=== PATIENT | male | born 1960 | race Caucasian/White ===

== ENCOUNTER → 2020-09-08 | Outpatient (CLI) | payer BC ==
[~2020-09-08] MED LIST: ASPIRIN EC325 MG PO; ENDOCET 7.5-321 EACH PO; FLOMAX 0.4 MG0.4 MG PO; PRILOSEC OTC20 MG PO; PROZAC 20 MG CA20 MG PO; TIZANIDINE HCL2 MG PO; VOLTAREN EC 7575 MG PO
[2020-09-08 10:40] LABS: HEMOGLOBIN 14.1 gm/dl (14.0-17.5); RED BLOOD COUNT 4.52 M/UL (4.20-5.50); WHITE BLOOD COUNT 5.3 K/UL (4.5-11.0)
[2020-09-08 11:03] LABS: BUN/CREATININE RATIO 15 (0-10)
== END ==
LOC: OPSV2 10:00 → EDSTATUS 10:00 → OPSV2 10:08
PROVIDERS: Orthopaedic Surgery
DX: Z01.818 Encounter for other preprocedural examination (principal); M17.12 Unilateral primary osteoarthritis, left knee
CPT/HCPCS: 36415; 71046; 80048; 85027; 87081; 93005

== ENCOUNTER → 2020-09-21 | Outpatient (CLI) | payer BC ==
[2020-09-21 13:10] LABS: BUN/CREATININE RATIO 19 (0-10)
== END ==
LOC: LAB 11:52
PROVIDERS: Orthopaedic Surgery
DX: Z01.812 Encounter for preprocedural laboratory examination (principal); M17.12 Unilateral primary osteoarthritis, left knee
CPT/HCPCS: 36415; 80048; 86850; 86900; 86901

== ENCOUNTER 2020-09-22 07:16 | Day surgery (SDC) | payer BC ==
[~2020-09-22] VITALS: Ht 167.6 cm; Wt 90.7 kg
[~2020-09-22 07:16] MED LIST changes: -ASPIRIN EC325 MG PO; -ENDOCET 7.5-321 EACH PO; -PRILOSEC OTC20 MG PO
[2020-09-22] MEDS ORDERED: PRILOSEC OTC20 MG PO (08:34)
[2020-09-22] MEDS ORDERED: ENDOCET 7.5-321 EACH PO (15:31)
[2020-09-22] MEDS ORDERED: ASPIRIN EC325 MG PO (15:31)
[2020-09-23 02:34] LABS: HEMOGLOBIN 13.6 gm/dl (14.0-17.5); RED BLOOD COUNT 4.46 M/UL (4.20-5.50); WHITE BLOOD COUNT 11.5 K/UL (4.5-11.0)
[2020-09-23 02:53] LABS: BUN/CREATININE RATIO 22 (0-10)
== END 2020-09-23 16:28 | disposition home or self-care (01) ==
LOC: OR 07:16 → M/S 18:13 → OR 09-23 16:28
PROVIDERS: Orthopaedic Surgery
DX: M17.0 Bilateral primary osteoarthritis of knee (principal); G89.18 Other acute postprocedural pain; Z79.82 Long term (current) use of aspirin; C61 Malignant neoplasm of prostate; K21.9 Gastro-esophageal reflux disease without esophagitis; F41.9 Anxiety disorder, unspecified
CPT/HCPCS: 36415; 73560; 80048; 85027; 97110; 97116; 97162; 97165; C1713; C1776; J0690; J1100; J1885; J2250; J2405; J2704; J2795; J3370; J7120

== ENCOUNTER 2020-10-20 08:43 | Emergency (ER) | payer BC ==
[~2020-10-20 08:43] MED LIST changes: +ASPIRIN EC325 MG PO; +ENDOCET 7.5-321 EACH PO; -PROZAC 20 MG CA20 MG PO; -TIZANIDINE HCL2 MG PO
[2020-10-20 09:38] LABS: HEMOGLOBIN 13.7 gm/dl (14.0-17.5); RED BLOOD COUNT 4.51 M/UL (4.20-5.50); WHITE BLOOD COUNT 9.9 K/UL (4.5-11.0)
[2020-10-20 10:01] LABS: BUN/CREATININE RATIO 20 (0-10)
== END 2020-10-20 11:10 | disposition home or self-care (01) ==
LOC: ER1 08:43
PROVIDERS: Physician Assistant Medical
DX: M25.562 Pain in left knee (principal); M79.89 Other specified soft tissue disorders; F17.210 Nicotine dependence, cigarettes, uncomplicated; Z85.46 Personal history of malignant neoplasm of prostate
CPT/HCPCS: 73564; 80053; 85025; 85652; 86140; 93971; 96374; 96375; 99283; J2270; J2405

== ENCOUNTER 2020-10-24 11:25 | Inpatient (IN) | payer BC ==
[~2020-10-24] VITALS: Ht 167.6 cm; Wt 92.1 kg
[2020-10-24 14:38] LABS: HEMOGLOBIN 11.8 gm/dl (14.0-17.5); RED BLOOD COUNT 3.87 M/UL (4.20-5.50); WHITE BLOOD COUNT 9.1 K/UL (4.5-11.0)
[2020-10-24 15:11] LABS: BUN/CREATININE RATIO 18 (0-10)
[2020-10-25 07:36] LABS: BUN/CREATININE RATIO 19 (0-10)
[2020-10-25] MEDS ORDERED: PRILOSEC OTC20 MG PO (08:34)
[2020-10-25] MEDS ORDERED: PROZAC 20 MG CA20 MG PO (11:37)
[2020-10-25] MEDS ORDERED: TIZANIDINE HCL2 MG PO (11:39)
[2020-10-25] MEDS ORDERED: ENDOCET 7.5-321 EACH PO (15:11)
[2020-10-25] MEDS ORDERED: ASPIRIN EC325 MG PO (15:11)
[2020-10-26 04:15] LABS: RED BLOOD COUNT 3.7 M/UL (4.20-5.50); WHITE BLOOD COUNT 7.7 K/UL (4.5-11.0)
[2020-10-26 04:36] LABS: BUN/CREATININE RATIO 16 (0-10)
[2020-10-27 04:47] LABS: HEMOGLOBIN 9.9 gm/dl (14.0-17.5)
[2020-10-27 04:53] LABS: RED BLOOD COUNT 3.32 M/UL (4.20-5.50); WHITE BLOOD COUNT 10.4 K/UL (4.5-11.0)
[2020-10-27 05:10] LABS: BUN/CREATININE RATIO 17 (0-10)
[2020-10-28 06:35] LABS: HEMOGLOBIN 10.5 gm/dl (14.0-17.5); RED BLOOD COUNT 3.52 M/UL (4.20-5.50); WHITE BLOOD COUNT 9.3 K/UL (4.5-11.0)
[2020-10-28 06:57] LABS: BUN/CREATININE RATIO 16 (0-10)
--- NOTE | 2020-10-28 11:29 | NUR ---
REPORT CALLED TO [facility] AT THIS TIME
== END 2020-10-28 13:12 | disposition home health service (06) | DRG 464 ==
LOC: M/S 11:25
PROVIDERS: ADMIT Orthopaedic Surgery
PROC: 0SUD09C Supplement Left Knee Joint with Liner, Patellar Surface, Open Approach (ICD-10-PCS; 2020-10-25)
PROC: 05HY33Z Insertion of Infusion Device into Upper Vein, Percutaneous Approach (ICD-10-PCS; 2020-10-25)
PROC: 0SBD0ZZ Excision of Left Knee Joint, Open Approach (ICD-10-PCS; 2020-10-25)
PROC: 0SPD09Z Removal of Liner from Left Knee Joint, Open Approach (ICD-10-PCS; principal; 2020-10-25 14:30)
DX: T84.54XA Infection and inflammatory reaction due to internal left knee prosthesis, initial encounter (principal); M00.062 Staphylococcal arthritis, left knee; Y83.9 Surgical procedure, unspecified as the cause of abnormal reaction of the patient, or of later complication, without mention of misadventure at the time of the procedure; I10 Essential (primary) hypertension; K21.9 Gastro-esophageal reflux disease without esophagitis; M19.90 Unspecified osteoarthritis, unspecified site; Z96.652 Presence of left artificial knee joint; F41.9 Anxiety disorder, unspecified; B95.61 Methicillin susceptible Staphylococcus aureus infection as the cause of diseases classified elsewhere; Z20.822 Contact with and (suspected) exposure to COVID-19; F32.9 Major depressive disorder, single episode, unspecified; M51.36 Other intervertebral disc degeneration, lumbar region; N40.0 Benign prostatic hyperplasia without lower urinary tract symptoms; M54.9 Dorsalgia, unspecified; Z98.890 Other specified postprocedural states; Z80.8 Family history of malignant neoplasm of other organs or systems; Z90.49 Acquired absence of other specified parts of digestive tract; Z79.82 Long term (current) use of aspirin; Z56.0 Unemployment, unspecified; Z82.49 Family history of ischemic heart disease and other diseases of the circulatory system; Z85.46 Personal history of malignant neoplasm of prostate
CPT/HCPCS: 36415; 73560; 80048; 80202; 82945; 83036; 85025; 85027; 86140; 87040; 87070; 87077; 87186; 87205; 89060; 93005; C1751; C1776; J0690; J1100; J1170; J1885; J2001; J2250; J2270; J2405; J2704; J2710; J3010; J3370; J7030; J7050; J7070; J7120; U0002

== ENCOUNTER → 2020-12-09 | Outpatient (CLI) | payer BC ==
[~2020-12-09] MED LIST changes: +PRILOSEC OTC20 MG PO; +PROZAC 20 MG CA20 MG PO; +TIZANIDINE HCL2 MG PO
== END ==
LOC: KOH-I 12:00
DX: Z01.89 Encounter for other specified special examinations (principal)
CPT/HCPCS: 93971

== ENCOUNTER 2021-01-19 06:21 | Inpatient (IN) | payer BC ==
[~2021-01-19] VITALS: Ht 170.2 cm; Wt 92.5 kg
[2021-01-19] MEDS ORDERED: CEFAZOLIN SODIUM1 GM IV (07:04)
[2021-01-19] MEDS ORDERED: HEPARIN FL 100 UNIT IV (07:05)
[2021-01-19 07:29] LABS: HEMOGLOBIN 11.1 gm/dl (14.0-17.5); RED BLOOD COUNT 4.3 M/UL (4.20-5.50); WHITE BLOOD COUNT 4.9 K/UL (4.5-11.0)
[2021-01-19 07:39] LABS: BUN/CREATININE RATIO 24 (0-10)
[2021-01-19] MEDS ORDERED: ASPIRIN EC81 MG PO (13:56)
[2021-01-19] MEDS ORDERED: ENDOCET 10-3251 EACH PO (13:56)
[2021-01-20 03:05] LABS: RED BLOOD COUNT 3.22 M/UL (4.20-5.50)
[2021-01-20 03:06] LABS: HEMOGLOBIN 8.5 gm/dl (14.0-17.5)
[2021-01-20 03:23] LABS: BUN/CREATININE RATIO 24 (0-10)
[2021-01-20] MEDS ORDERED: ANCEF 1 GM IV AD1 GM IV (09:43)
--- NOTE | 2021-01-20 12:38 | NUR ---
discontinued patient's hemovac to left knee. patient tolerated well.
[2021-01-20] MEDS ORDERED: CUBICIN 500 MG500 MG IV (15:38)
--- NOTE | 2021-01-20 16:12 | NUR ---
REPORT CALLED TO [facility] AT [facility].
== END 2021-01-20 09:38 | disposition home health service (06) | DRG 465 ==
LOC: ZOBSOF 06:21 → M/S 15:26
PROVIDERS: ADMIT Orthopaedic Surgery
PROC: 0SHD08Z Insertion of Spacer into Left Knee Joint, Open Approach (ICD-10-PCS; 2021-01-19)
PROC: 0SBD0ZZ Excision of Left Knee Joint, Open Approach (ICD-10-PCS; 2021-01-19)
PROC: 0SPD0JZ Removal of Synthetic Substitute from Left Knee Joint, Open Approach (ICD-10-PCS; principal; 2021-01-19 11:30)
DX: T84.54XA Infection and inflammatory reaction due to internal left knee prosthesis, initial encounter (principal); Z20.822 Contact with and (suspected) exposure to COVID-19; F41.9 Anxiety disorder, unspecified; M51.36 Other intervertebral disc degeneration, lumbar region; N40.0 Benign prostatic hyperplasia without lower urinary tract symptoms; Y83.8 Other surgical procedures as the cause of abnormal reaction of the patient, or of later complication, without mention of misadventure at the time of the procedure; T84.033A Mechanical loosening of internal left knee prosthetic joint, initial encounter; K21.9 Gastro-esophageal reflux disease without esophagitis; M19.90 Unspecified osteoarthritis, unspecified site; Z82.49 Family history of ischemic heart disease and other diseases of the circulatory system; Z90.49 Acquired absence of other specified parts of digestive tract; Z85.46 Personal history of malignant neoplasm of prostate
CPT/HCPCS: 36415; 73560; 80048; 85027; 85652; 86140; 87070; 87205; 93005; 97163; 97165; J0171; J0690; J0878; J1100; J1170; J1885; J2001; J2405; J2704; J2795; J3010; J3260; J3370; J7040; J7050; J7120

== ENCOUNTER → 2021-03-16 | Outpatient (CLI) | payer BC ==
[~2021-03-16] MED LIST changes: +ANCEF 1 GM IV AD1 GM IV; +ASPIRIN EC81 MG PO; +CEFAZOLIN SODIUM1 GM IV; +CUBICIN 500 MG500 MG IV; +DAPTOMYCIN IV; +ENDOCET 10-3251 EACH PO; +FERROUS SULFAT325 MG PO; +HEPARIN FL 100 UNIT IV
[2021-03-16 11:12] LABS: HEMOGLOBIN 9.3 gm/dl (14.0-17.5); RED BLOOD COUNT 4.19 M/UL (4.20-5.50); WHITE BLOOD COUNT 6.8 K/UL (4.5-11.0)
== END ==
LOC: OPSV2 03-14 09:00 → EDSTATUS 09:30 → OPSV2 09:30
PROVIDERS: Orthopaedic Surgery
DX: Z01.812 Encounter for preprocedural laboratory examination (principal); T84.69XA Infection and inflammatory reaction due to internal fixation device of other site, initial encounter
CPT/HCPCS: 36415; 85027

== ENCOUNTER → 2021-03-27 | Outpatient (CLI) | payer BC ==
[~2021-03-27] MED LIST changes: +CYCLOBENZAPRINE10 MG PO; +ELIQUIS2.5 MG PO; +ZOFRAN4 MG PO
[2021-03-27 11:01] LABS: HEMOGLOBIN 10.2 gm/dl (14.0-17.5); RED BLOOD COUNT 4.64 M/UL (4.20-5.50); WHITE BLOOD COUNT 6.2 K/UL (4.5-11.0)
[2021-03-27 11:25] LABS: BUN/CREATININE RATIO 15 (0-10)
== END ==
LOC: LAB 10:12
PROVIDERS: Orthopaedic Surgery
DX: Z01.812 Encounter for preprocedural laboratory examination (principal)
CPT/HCPCS: 36415; 80048; 85027; 86850; 86900; 86901

== ENCOUNTER 2021-03-28 05:58 | Inpatient (IN) | payer BC ==
[~2021-03-28] VITALS: Ht 167.6 cm; Wt 91.6 kg
[~2021-03-28 05:58] MED LIST changes: -CYCLOBENZAPRINE10 MG PO; -ELIQUIS2.5 MG PO; -ZOFRAN4 MG PO
[2021-03-28] MEDS ORDERED: ZOFRAN4 MG PO (11:38)
[2021-03-28] MEDS ORDERED: ENDOCET 10-3251 EACH PO (11:38)
[2021-03-28] MEDS ORDERED: ELIQUIS2.5 MG PO (11:38)
[2021-03-28] MEDS ORDERED: CYCLOBENZAPRINE10 MG PO (11:38)
[2021-03-29 04:28] LABS: HEMOGLOBIN 7.6 gm/dl (14.0-17.5); RED BLOOD COUNT 3.48 M/UL (4.20-5.50); WHITE BLOOD COUNT 12.2 K/UL (4.5-11.0)
[2021-03-29 05:02] LABS: BUN/CREATININE RATIO 17 (0-10)
[2021-03-30 03:58] LABS: RED BLOOD COUNT 2.94 M/UL (4.20-5.50); WHITE BLOOD COUNT 7.6 K/UL (4.5-11.0)
[2021-03-30 03:59] LABS: HEMOGLOBIN 6.6 gm/dl (14.0-17.5)
[2021-03-30 04:09] LABS: BUN/CREATININE RATIO 16 (0-10)
--- NOTE | 2021-03-30 05:47 | NUR ---
Call placed to environmental health aide Qasua, related to hgb 6.6, new orders received to type and screen, and to transfuse 2 unitspacked red blood cells
[2021-03-30 17:13] LABS: HEMOGLOBIN 9.5 gm/dl (14.0-17.5); RED BLOOD COUNT 3.92 M/UL (4.20-5.50); WHITE BLOOD COUNT 4.6 K/UL (4.5-11.0)
--- NOTE | 2021-03-30 17:37 | NUR ---
NOTIFIED OF PT FALLING IN FLOOR NO ORDERS RECIEVED PT VITALS WNL NO DISTRESS OR BRUSIES/SCRATCHES ARE NOTED AT THIS TIME WCTM
--- NOTE | 2021-03-30 18:40 | NUR ---
DEBBY NOTIFIED OF PATIENT'S TEMP 103 2 HOURS AFTER BLOOD TRANSFUSION WAS ENDED MD CONSULTED HOSPITALIST
--- NOTE | 2021-03-30 18:56 | NUR ---
DR VERGARA CONSULTED ON PATIENT ORDERED XRAY OF LEFT KNEE VIA PATIENT FALLING PREVIOUSLY
[2021-03-30 21:16] LABS: HEMOGLOBIN 8.3 gm/dl (14.0-17.5)
[2021-03-30 21:17] LABS: RED BLOOD COUNT 3.43 M/UL (4.20-5.50); WHITE BLOOD COUNT 11.9 K/UL (4.5-11.0)
--- NOTE | 2021-03-30 23:19 | NUR ---
LAB CALLED WITH A CRITICAL LAB RESULT OF LACTIC ACID 19.8. PROVIDER NOTIFIED.
[2021-03-31 04:17] LABS: ACINETOBACTER BAUMANNII Not Detected (Negative); CANDIDA ALBICANS Not Detected (Negative); CANDIDA KRUSEI Not Detected (Negative); CANDIDA TROPICALIS Not Detected (Negative); ENTEROCOCCUS Not Detected (Negative); ESCHERICHIA COLI Not Detected (Negative); HAEMOPHILUS INFLUENZAE Not Detected (Negative); KLEBSIELLA OXYTOCA Not Detected (Negative); KLEBSIELLA PNEUMONIAE Not Detected (Negative); KPC-CARBAPENEM-RESISTANCE GENE Not Detected (Negative); PROTEUS Not Detected (Negative); PSEUDOMONAS AERUGINOSA Not Detected (Negative); SERRATIA MARCESANS Not Detected (Negative); STAPHYLOCOCCUS Not Detected (Negative); STAPHYLOCOCCUS AUREUS Not Detected (Negative); STREP AGALACTIAE (GROUP B) Not Detected (Negative); STREP PYOGENES (GROUP A) Not Detected (Negative); STREPTOCOCCUS Not Detected (Negative); mecA (METHICILLIN RESIST GENE Not Detected (Negative); vanA/B (VANCOMYCIN RESIST GENE Not Detected (Negative)
--- NOTE | 2021-03-31 06:33 | NUR ---
LAB CALLED FOR POSITIVE BLOOD CULTURES, IV ANTIBIOTIC IS INFUSING
[2021-03-31 06:49] LABS: HEMOGLOBIN 7.8 gm/dl (14.0-17.5); RED BLOOD COUNT 3.25 M/UL (4.20-5.50)
[2021-03-31 06:52] LABS: WHITE BLOOD COUNT 21.2 K/UL (4.5-11.0)
[2021-03-31 07:09] LABS: BUN/CREATININE RATIO 15 (0-10)
[2021-04-01 04:29] LABS: HEMOGLOBIN 7.5 gm/dl (14.0-17.5); RED BLOOD COUNT 3.11 M/UL (4.20-5.50); WHITE BLOOD COUNT 17.6 K/UL (4.5-11.0)
[2021-04-01 05:03] LABS: BUN/CREATININE RATIO 11 (0-10)
[2021-04-02 09:47] LABS: HEMOGLOBIN 7.7 gm/dl (14.0-17.5); RED BLOOD COUNT 3.21 M/UL (4.20-5.50); WHITE BLOOD COUNT 11.1 K/UL (4.5-11.0)
[2021-04-02 10:06] LABS: BUN/CREATININE RATIO 10 (0-10)
[2021-04-03 11:26] LABS: HEMOGLOBIN 8.7 gm/dl (14.0-17.5)
[2021-04-03 11:29] LABS: RED BLOOD COUNT 3.63 M/UL (4.20-5.50); WHITE BLOOD COUNT 7.4 K/UL (4.5-11.0)
[2021-04-03 11:44] LABS: BUN/CREATININE RATIO 8 (0-10)
[2021-04-04 05:53] LABS: HEMOGLOBIN 8.3 gm/dl (14.0-17.5); RED BLOOD COUNT 3.52 M/UL (4.20-5.50); WHITE BLOOD COUNT 6.1 K/UL (4.5-11.0)
[2021-04-04 06:39] LABS: BUN/CREATININE RATIO 8 (0-10)
--- NOTE | 2021-04-05 04:15 | NUR ---
PICC LINE PULLED FROM RIGHT UPPER BY ADY GALLOWAY, [employer]OP[employer] SALES EXECUTIVE. NO ORDER TO CULTURE LINE, THEREFORE IT WAS DISCARDED ACCORDINGLY. TIP INTACT.
[2021-04-05 06:46] LABS: HEMOGLOBIN 8.5 gm/dl (14.0-17.5); RED BLOOD COUNT 3.64 M/UL (4.20-5.50); WHITE BLOOD COUNT 7.1 K/UL (4.5-11.0)
[2021-04-05 07:33] LABS: BUN/CREATININE RATIO 9 (0-10)
[2021-04-06 06:44] LABS: HEMOGLOBIN 8.1 gm/dl (14.0-17.5); RED BLOOD COUNT 3.52 M/UL (4.20-5.50); WHITE BLOOD COUNT 6.4 K/UL (4.5-11.0)
[2021-04-06 07:03] LABS: BUN/CREATININE RATIO 10 (0-10)
[2021-04-07 07:01] LABS: HEMOGLOBIN 8.6 gm/dl (14.0-17.5); RED BLOOD COUNT 3.68 M/UL (4.20-5.50); WHITE BLOOD COUNT 4.9 K/UL (4.5-11.0)
[2021-04-07 07:26] LABS: BUN/CREATININE RATIO 9 (0-10)
== END 2021-04-07 17:14 | disposition home health service (06) | DRG 466 ==
LOC: OR 05:58 → M/S 05:59 → OR 07:30 → EDSTATUS 07:30 → M/S 14:44 → OR 14:44 → M/S 04-04 17:59 → OR 04-04 17:59 → M/S 04-07 17:14
PROVIDERS: Internal Medicine; ADMIT Orthopaedic Surgery
PROC: 0SRD0J9 Replacement of Left Knee Joint with Synthetic Substitute, Cemented, Open Approach (ICD-10-PCS; 2021-03-28)
PROC: 0SPD08Z Removal of Spacer from Left Knee Joint, Open Approach (ICD-10-PCS; 2021-03-28)
PROC: 02HV33Z Insertion of Infusion Device into Superior Vena Cava, Percutaneous Approach (ICD-10-PCS; 2021-03-29)
PROC: 30233N1 Transfusion of Nonautologous Red Blood Cells into Peripheral Vein, Percutaneous Approach (ICD-10-PCS; principal; 2021-03-30)
PROC: 3E033XZ Introduction of Vasopressor into Peripheral Vein, Percutaneous Approach (ICD-10-PCS; 2021-03-30)
DX: Z47.33 Aftercare following explantation of knee joint prosthesis (principal); R65.21 Severe sepsis with septic shock; A41.89 Other specified sepsis; J15.6 Pneumonia due to other Gram-negative bacteria; G93.41 Metabolic encephalopathy; T80.219A Unspecified infection due to central venous catheter, initial encounter; D62 Acute posthemorrhagic anemia; Z20.822 Contact with and (suspected) exposure to COVID-19; K22.70 Barrett's esophagus without dysplasia; D63.8 Anemia in other chronic diseases classified elsewhere; B96.89 Other specified bacterial agents as the cause of diseases classified elsewhere; K21.9 Gastro-esophageal reflux disease without esophagitis; M19.90 Unspecified osteoarthritis, unspecified site; F32.9 Major depressive disorder, single episode, unspecified; I10 Essential (primary) hypertension; Z85.46 Personal history of malignant neoplasm of prostate; Z90.49 Acquired absence of other specified parts of digestive tract; Z79.899 Other long term (current) drug therapy; Z86.19 Personal history of other infectious and parasitic diseases; T80.89XA Other complications following infusion, transfusion and therapeutic injection, initial encounter; W01.0XXA Fall on same level from slipping, tripping and stumbling without subsequent striking against object, initial encounter; Y92.239 Unspecified place in hospital as the place of occurrence of the external cause
CPT/HCPCS: 36415; 36430; 36600; 71045; 73560; 80048; 80053; 80202; 81001; 82803; 83605; 83735; 84146; 85025; 85027; 85384; 85652; 86140; 86850; 86880; 86900; 86901; 86920; 87040; 87070; 87077; 87086; 87150; 87186; 87205; 97110; 97110-GP-CQ; 97116; 97116-GP-CQ; 97162; 97165; 97530-GP-CQ; C1713; C1751; C1776; J0690; J0692; J0696; J0713; J0878; J1335; J1644; J1885; J2001; J2250; J2270; J2405; J2550; J2704; J2795; J3010; J3370; J7030; J7050; J7070; J7120; P9016; Q9967; U0002

== ENCOUNTER → 2021-05-10 | Outpatient (CLI) | payer BC ==
[~2021-05-10] MED LIST changes: +CYCLOBENZAPRINE10 MG PO; +ELIQUIS2.5 MG PO; +ZOFRAN4 MG PO
== END ==
LOC: OPSV 11:03
DX: T84.54XD Infection and inflammatory reaction due to internal left knee prosthesis, subsequent encounter (principal)
CPT/HCPCS: G0463

== ENCOUNTER → 2021-06-19 | Outpatient (CLI) | payer BC | LOC: LAB 08:36 | DX: Z86.19 Personal history of other infectious and parasitic diseases (principal) | CPT/HCPCS: 36415; 85652; 86140 ==

== ENCOUNTER → 2021-07-19 | Outpatient (CLI) | payer BC ==
[~2021-07-19] MED LIST changes: +CEPHALEXIN500 MG PO; +DICLOFENAC SODI75 MG PO; +TIZANIDINE HCL4 MG PO; +ZOFRAN 4 MG TAB4 MG PO
[2021-07-19 13:11] LABS: BUN/CREATININE RATIO 21 (0-10)
== END ==
LOC: LAB 10:57
PROVIDERS: Orthopaedic Surgery
DX: Z01.812 Encounter for preprocedural laboratory examination (principal)
CPT/HCPCS: 36415; 80048; 86850; 86900; 86901

== ENCOUNTER → 2021-07-20 | Day surgery (SDC) | payer BC | END | disposition home or self-care (01) | LOC: OR 05:31 → EDSTATUS 12:45 → OR 12:45 | DX: M17.11 Unilateral primary osteoarthritis, right knee (principal); G89.18 Other acute postprocedural pain; K21.9 Gastro-esophageal reflux disease without esophagitis; F41.9 Anxiety disorder, unspecified; Z79.899 Other long term (current) drug therapy | CPT/HCPCS: 73560; 97161; 97165; 97530; C1713; C1776; J0171; J0690; J0735; J1100; J1170; J1200; J1885; J2250; J2270; J2274; J2405; J2704; J2710; J2795; J3010; J3370; J3475 ==

== ENCOUNTER 2021-07-24 16:17 | Emergency (ER) | payer BC ==
[2021-07-24 18:51] LABS: HEMOGLOBIN 9.4 gm/dl (14.0-17.5); RED BLOOD COUNT 3.81 M/UL (4.20-5.50); WHITE BLOOD COUNT 9.2 K/UL (4.5-11.0)
[2021-07-24 19:52] LABS: BUN/CREATININE RATIO 19 (0-10)
== END 2021-07-24 21:10 | disposition home or self-care (01) ==
LOC: ER1 16:17
PROVIDERS: Emergency Medicine
DX: M96.89 Other intraoperative and postprocedural complications and disorders of the musculoskeletal system (principal); M25.462 Effusion, left knee; I10 Essential (primary) hypertension; K21.9 Gastro-esophageal reflux disease without esophagitis; Z96.652 Presence of left artificial knee joint; Z85.46 Personal history of malignant neoplasm of prostate
CPT/HCPCS: 73564; 80053; 83605; 85025; 85652; 86140; 87040; 99283

== ENCOUNTER → 2021-07-28 | Outpatient (CLI) | payer BC | LOC: US 10:46 | DX: L76.82 Other postprocedural complications of skin and subcutaneous tissue (principal) | CPT/HCPCS: 93971 ==